=== PATIENT | male | born 1980 | race Caucasian/White ===

== ENCOUNTER 2023-10-27 20:56 | Emergency (ER) | payer SELFPAY ==
[~2023-10-27] VITALS: Ht 188 cm; Wt 102.1 kg
[2023-10-27 21:23] VITALS: TEMP 99.4
[2023-10-27 21:57] LABS: BASOPHILS % 0.3 % (0.0-1.0); EOSINOPHILS # (AUTO) 0.5 (0.0-0.4); EOSINOPHILS % 3.6 % (0.0-6.0); HEMATOCRIT 41.9 % (38.2-49.6); HEMOGLOBIN 13.4 g/dL (14.0-18.0); LYMPHOCYTES # (AUTO) 2.3 (1.0-3.2); LYMPHOCYTES % 17.2 % (18.0-39.1); MEAN CORPUSCULAR HEMOGLOBIN 26.2 pg (28-32); MEAN CORPUSCULAR VOLUME 81.8 fL (81-99); MONOCYTES # (AUTO) 1.2 (0.2-0.8); MONOCYTES % 9.1 % (4.4-11.3); NEUTROPHILS # (AUTO) 9.1 (2.1-6.9); NEUTROPHILS % 69.1 % (38.7-80.0); PLATELET COUNT 338 x10e3/uL (140-360); RED BLOOD COUNT 5.12 x10e6/uL (4.3-5.7); RED CELL DISTRIBUTION WIDTH 13.5 % (11.7-14.4); WHITE BLOOD COUNT 13.13 x10e3/uL (4.8-10.8)
[2023-10-27 22:13] LABS: ALBUMIN/GLOBULIN RATIO 0.6 (0.8-2.0); ANION GAP 22.8 mmol/L (8-16); BILIRUBIN,TOTAL 0.4 mg/dL (0.2-1.2); CALCIUM 8.6 mg/dL (8.4-10.2); CREATININE, SERUM 1.66 mg/dL (0.72-1.25); POTASSIUM 3.8 mmol/L (3.5-5.1)
[2023-10-27 22:15] LABS: CLARITY,URINE CLOUDY (CLEAR); COLOR,URINE YELLOW (YELLOW)
[2023-10-27 22:16] LABS: BACTERIA,URINE MANY /HPF; BILIRUBIN,URINE NEGATIVE (NEGATIVE); EPITHELIAL CELLS,URINE FEW /LPF; GLUCOSE, URINE NEGATIVE (NEGATIVE); KETONES,URINE NEGATIVE (NEGATIVE); LEUKOCYTE ESTERASE ,URINE 2+ (NEGATIVE); NITRITE,URINE NEGATIVE (NEGATIVE); PH,URINE 6 (5 - 7); PROTEIN,URINE DIPSTICK 2+ (NEGATIVE); RBC,URINE >50 /HPF (0-5); URINE UROBILINOGEN 0.2 mg/dL (0.2 - 1); WBC,URINE (MAN) >50 /HPF (0-5)
[2023-10-27] MEDS ORDERED: SODIUM CHLORIDE 0.9% 1000ML 1,000 ML IV STA (22:25)
[2023-10-27] MEDS ORDERED: IOPAMIDOL 370 MG/ML 100 ML INFUS..BTL INJ ONE (22:32)
[2023-10-27] MEDS: Morphine 4mg INJECTION 4 MG/ML INJ IV STA (22:51)
[2023-10-27] MEDS: ONDANSETRON HCL INJ 2MG/ML 2ML 2 MG/ML VIAL IV STA (22:51)
[2023-10-27 23:30] VITALS: PULSE 85; RESP 26
[2023-10-27] MEDS ORDERED: CIPRO500 MG PO (23:51)
[2023-10-28] MEDS ORDERED: LIDOCAINE JELLY 2% 10ML URO-JET ONE (00:07)
[2023-10-28 01:14] VITALS: BP 127/73; PULSE 68; RESP 18; TEMP 98.6; O2SAT 99
[2023-10-28] MEDS: LIDOCAINE JELLY 2% 10ML URO-JET TOP STA (01:16)
== END 2023-10-28 00:45 | disposition home or self-care (01) ==
LOC: ER 21:00
DX: N50.812 Left testicular pain (principal); R33.9 Retention of urine, unspecified; N39.0 Urinary tract infection, site not specified; N39.9 Disorder of urinary system, unspecified; N13.8 Other obstructive and reflux uropathy; N50.3 Cyst of epididymis; N43.3 Hydrocele, unspecified
CPT/HCPCS: 36415; 51702; 74177; 76870; 80053; 81001; 85025; 87086; 93976; 99284; J2270; J2405; J7030; Q9967; 51700